=== PATIENT | female | born 1995 | race Caucasian/White ===

== ENCOUNTER → 2016-11-23 | Outpatient (CLI) | payer OTHER, BC ==
[2016-11-23 07:35] LABS: FASTING URINE GLUCOSE NEGATIVE
[2016-11-23 08:17] LABS: BUN 10 mg/dL (7-18)
[2016-11-23 08:18] LABS: GFR (ESTIMATED) 107 ML/MIN (59-)
[2016-11-23 09:02] LABS: 1 HR URINE GLUCOSE NEGATIVE mg/ml
[2016-11-23 10:14] LABS: 2 HR URINE GLUCOSE NEGATIVE mg/ml
[2016-11-23 10:40] LABS: 3 HR URINE GLUCOSE NEGATIVE mg/ml
== END ==
LOC: LAB 07:01
PROVIDERS: Internal Medicine
DX: R53.81 Other malaise (principal); E16.2 Hypoglycemia, unspecified; R61 Generalized hyperhidrosis

== ENCOUNTER → 2017-03-16 | Outpatient (CLI) | payer OTHER ==
[2017-03-17 12:37] LABS: HBsAg Screen Negative (Negative); HIV Screen 4th Generation wRfx Non Reactive (Non Reactive); Hep A Ab, IgM Negative (Negative); Hep B Core Ab, IgM Negative (Negative); Hep C Virus Ab 0.1 (0.0-0.9)
== END ==
LOC: LAB 10:37
DX: S61.431D Puncture wound without foreign body of right hand, subsequent encounter (principal); W26.8XXA Contact with other sharp object(s), not elsewhere classified, initial encounter; Y92.69 Other specified industrial and construction area as the place of occurrence of the external cause; Y99.0 Civilian activity done for income or pay; Z09 Encounter for follow-up examination after completed treatment for conditions other than malignant neoplasm
CPT/HCPCS: G0432

== ENCOUNTER 2017-06-21 12:09 | Observation (INO) | payer OTHER, BC ==
[~2017-06-21] VITALS: Ht 170.2 cm; Wt 89.5 kg
[2017-06-21 12:15] VITALS: BP 131/90
--- NOTE | 2017-06-21 12:20 | Emergency Room Report ---
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 N Clinical Suspician of Infection? N Mental Status: 1 - Regular (Normal Baseline) Sepsis Risk:Low Sepsis Risk Have you (or family members/close friends) recently traveled outside the [place]? N If Yes, where/when: Have you had exposure to infectious disease within the past month? TB? Other? Specify: Source patient, RN notes reviewed Exam Limitations no limitations Comment Pt comes to the ED with complaints of abdominal discomfort and diarrhea since Wednesday afternoon. aND HAVING about 5 BM's per day. Most of the pain is right sided and more in the RUQ Cardiac Chest Pain Chest pain indicative of cardiac No ALLERGIES Coded Allergies: No Known Allergies (06/21/17) Home Medications Reported Medications No Known Home Medications History Medical History General CAD? No Angina: No [place]: No Hypertension? No Hyperlipidemia? No CHF? No DVT? No PE? No COPD? No Asthma? No Anemia? No GERD? No Gastric ulcers? No GI Bleed? No Hernia? No Thyroid Problems? No Hypothyroidism? No CVA? No Seizures? No Diabetes? No Renal Insuffiency? No End Stage Renal Disease? No UTI? No Stones? No BPH? No GB Disease: No Nephritic Syndrome? No Asplenia? No Hepatitis? No Sickle Cell Disease? No Arthritis? No Migraines? No Cataracts? No Glaucoma? No MRSA? No HIV? No TB? No Anxiety? No Depression? No Cancer? No More? No Immunization Hx Ped.Immunizations UTD Yes DT/Tetanus 1-4 Years Ago Surgical Hx Previous Surgery?Y wisdom teeth [employer] Hx LMP 1 Month Ago Social History Smoking Hx Smoker: Never Smoker Tobacco: No Alcohol Alcohol: No Review of Systems All Other Systems Reviewed and Negative Constitutional see HPI Gastrointestinal see HPI Physical Exam Vital Signs Vital Signs Date Time Temp Pulse Resp B/P Pulse O2 O2 Flow FiO2 Ox Delivery Rate 06/21 1514 97.0 90 18 132/90 99 06/21 1215 97.0 116 18 131/90 99 General Appearance normal appearance, WD/WN, no apparent distress Respiratory Status No: respiratory distress. 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 No Results/Orders Laboratory Tests 06/21/17 1230: Sodium 137, Potassium 3.6, Chloride 104, Carbon Dioxide 27, BUN 6 L, Creatinine 0.8, Estimated Creat Clear 157, Estimated GFR (MDRD) 91, Glucose 90, Calcium 8.6 , Total Bilirubin 0.3, AST 14 L, ALT 16, Alkaline Phosphatase 103, Total Protein 7.5, Albumin 3.4, Globulin 4.1 H, Albumin/Globulin Ratio 0.8 L, Amylase 40, Lipase 86, WBC 13.8 H, RBC 5.18, Hgb 14.6, Hct 42.6, MCV 82.1 L, RDW 14.3, Plt Count 249, MPV 7.7, Gran % 81.9 H, Gran # 11.3 H, Lymphocytes % 13.1, Monocytes % 4.4, Eosinophils % 0.4, Basophils % 0.2, Lymphocytes # 1.8, Monocytes # 0.6, Eosinophils # 0.1, Basophils # 0.0, PUBS MCHC 34.2, MCH 28.1 06/21/17 1223: Urine Color YELLOW, Urine Appearance CLEAR, Urine pH 7.0, Ur Specific [place] <= 1.005, Urine Protein NEGATIVE, Urine Ketones NEGATIVE, Urine Blood 1+ H, Urine Nitrate NEGATIVE, Urine Bilirubin NEGATIVE, Urine Urobilinogen 0.2, Ur Leukocyte Esterase 1+ H, Urine RBC 3-5, Urine WBC 5-10, Ur Squamous Epith Cells 3-5, Urine Bacteria 1+, Urine Glucose NEGATIVE Current Medication Orders Sig/Randee Start time Last Medication Dose Route Stop Time Status Admin Sodium Chloride 50 ML .STK-MED ONE 06/21 1345 DC IV Piperacillin Sod/ 0 .STK-MED ONE 06/21 134 DC Tazobactam Sod .ROUTE Sodium Chloride 50 ML .STK-MED ONE 06/21 1343 DC IV Sodium Chloride 1,000 ML .STK-MED ONE 06/21 1343 DC IV Piperacillin Sod/ 3.375 GM ONCE ONE 06/21 1330 DC 06/21 Tazobactam Sod IV 06/21 1359 1349 Sodium Chloride 50 ML Sodium Chloride 1,000 ML .Q6H40M 06/21 1330 AC 06/21 IV 06/22 0121 1349 Sodium Chloride 10 ML PRN PRN 06/21 1330 AC IV 06/22 1321 Sodium Chloride 10 ML PRN PRN 06/21 1230 AC IV 06/22 1217 Orders Procedure Date/time Status DIET-NOTHING BY MOUTH 06/21 D Active Decision to admit 06/21 1512 Active CULTURE, URINE 06/21 1223 Active INFLUENZA A&B ANTIGENS 06/21 1221 Active DIARRHEA PANEL, PCR 06/21 1220 Active IV SALINE LOCK 06/21 1217 Active URINALYSIS/COMPLETE 06/21 1217 Complete URINE 06/21 1217 Complete LIPASE 06/21 1217 Complete CBC WITH AUTO DIFF 06/21 1217 Complete CHEM 12 PROFILE 06/21 1217 Complete AMYLASE 06/21 1217 Complete XRAY/CT/US XRAY/CT/US Ultrasound gallbladder US Interpretation by discussed w/radiologist US results lots of sludge in the Gallbladder but no pericholecystic fluid Departure Departure Time of Disposition 1329 Disposition Still a Patient Clinical Impression Primary Impression: Acute cholecystitis Secondary Impressions: Cystitis without hematuria Condition STABLE Referrals YELENA KAMINSKI (Family) Additional Instructions Pt does not want to be transferred to [facility] as she works in [place] and insurance is here. Discussed with Dr. Dawson. Admit to OBS for IV antibiotics, schedule HIDA Scan and place a surgical consult Discharge Counseling Counseled pt/family regarding diagnosis, test results, follow up needs Prescriptions Current Visit Scripts No Known Home Medications ED Critical Care Critical Care No If Critical Care minutes are documented, the time involved in the performance of seperately reportable procedures was not counted toward critical care time documented. I directly delivered medical care to this critically ill and/or injured patient. Timely evaluation and treatment was necessary to address the significant organ system(s) dysfunction present in this patient. at 1515
[2017-06-21 12:36] LABS: URINE BILIRUBIN - DIPSTICK NEGATIVE (NEG); URINE BLOOD 1+ (NEG)
[2017-06-21 12:43] LABS: LYMPH # 1.8 K/mm3 (0.7-4.5); LYMPH % 13.1 % (10-50.0)
[2017-06-21 12:51] LABS: HEMOGLOBIN 14.6 g/dL (12.2-16.2)
--- NOTE | 2017-06-21 13:44 | RADIOLOGY REPORT PS360 ---
US GALLBLADDER (ABD LTD) HISTORY: RUQ abd pain ] quadrant pain for 3 days. Diarrhea and nausea. Patient Age: 21 years: Female Ordering Physician: Monik Bangura MD TECHNIQUE: Ultrasound right upper quadrant COMPARISON :No relevant previous studies FINDINGS Pancreas appears satisfactory. Liver. No focal lesion. No biliary ductal dilatation Gallbladder. No discrete gallstones evident. Notable amount of debris and sludge seen leading to the gallbladder on the decubitus images. But No discrete or shadowing gallstone . Moderate-generous size gallbladder measuring 8.3 cm length. Gallbladder wall upper normal thickness. Common duct normal diameter 4 mm. Marta hepatis region Portal vein normal dimension and normal direction flow. Right kidney appears normal. No hydronephrosis or mass. 9.8 cm length. Cortex well-maintained. IMPRESSION: Gallbladder.No gallstones. There is notable debris and moderate sludge in gallbladder but no discrete gallstones.. Gallbladder wall upper normal thickness overall Liver, pancreas right kidney unremarkable
[2017-06-21 15:41] LABS: AEROMONAS NOT DETECTED (NOT DETECTE); ASTROVIRUS NOT DETECTED (NOT DETECTE); CYCLOSPORA CAYETANENSIS NOT DETECTED (NOT DETECTE); E COLI O157 NOT DETECTED (NOT DETECTE); ENTEROAGGREGATIVE E COLI NOT DETECTED (NOT DETECTE); ENTEROPATHOGENIC E COLI NOT DETECTED (NOT DETECTE); ENTEROTOXIGENIC E COLI NOT DETECTED (NOT DETECTE); NOROVIRUS NOT DETECTED (NOT DETECTE); SAPOVIRUS NOT DETECTED (NOT DETECTE); SHIGELLA/ENTEROINVASIVE E COLI NOT DETECTED (NOT DETECTE); VIBRIO CHOLERAE NOT DETECTED (NOT DETECTE)
[2017-06-21 17:31] VITALS: BP 151/89
[2017-06-21 17:36] LABS: SHIGA-LIKE TOXIN PROD. E COLI DETECTED (NOT DETECTE)
[2017-06-21 19:28] VITALS: BP 128/82
[2017-06-21 20:15] VITALS: BP 128/82
--- NOTE | 2017-06-21 22:34 | HISTORY AND PHYSICAL REPORT ---
Demographics: Admit date: 06/21/17 Chief complaint: abd pain PRIMARY DIAGNOSIS: ACUTE CHOLECYSTITIS Allergies: Coded Allergies: No Known Allergies (06/21/17) History of present illness: History of present illness: this wf with abd pain with vomiting and diarrhea w/o blood in stool - pt with no fever or known contact- pt with no travel and no uncooked seafood - pt with no relief with otc meds and was seen in the ed with continued sx despite meds and ivf - Past medical history: Family HX Family Hx Insignificant Yes Immunization HX Ped.Immunizations UTD Yes DT/Tetanus Unknown Pneumonia NA TB Test in last year Yes Result Negative General CAD? No Angina: No [place]: No Hypertension? No Hyperlipidemia? No CHF? No DVT? No PE? No COPD? No Asthma? No Anemia? No GERD? No Gastric ulcers? No GI Bleed? No Hernia? No Thyroid Problems? No Hypothyroidism? No CVA? No Seizures? No Diabetes? No Renal Insuffiency? No UTI? No Stones? No BPH? No GB Disease: No Nephritic Syndrome? No Asplenia? No Hepatitis? No Sickle Cell Disease? No Arthritis? No Migraines? No Cataracts? No Glaucoma? No MRSA? No HIV? No TB? No Anxiety? No Depression? No Cancer? No More? No Past Surgical HX Previous Surgery?Y wisdom teeth Current home meds: Reported Medications No Known Home Medications Social Hx: Smoking HX Tobacco No Are you/the child exposed to second-hand smoke: No Alcohol Alcohol: No Hx of Drug Use Drug Use? No Patien't marital status is single Patient's support system is excellent Review of systems: Constitutional see HPI, weakness. No: fever. Eyes No: drainage. Ears, Nose, Mouth, Throat No ear discharge, No epistaxis, No throat pain Respiratory No: cough, shortness of breath, wheezing. Cardiovascular No chest pain, No palpitations, No syncope Gastrointestinal/Abdominal see HPI, abdominal pain, diarrhea, nausea, poor appetite, poor fluid intake, vomiting Genitourinary No: dysuria, frequency, hesitancy, hematuria. Musculoskeletal No: back pain, joint pain, joint swelling, neck pain. Skin No: rash. Neurological No: headache, seizure disorder. Psychiatric No: no symptoms reported. Exam: Lab data for last 24 hours: Laboratory Tests 06/21/17 1904: Influenza Type A Ag NOT DETECTED, Influenza Type B Ag NOT DETECTED 06/21/17 1535: Stl Cyclospora species NOT DETECTED, Stool Rotavirus (PCR) NOT DETECTED, Stool Campylobacter PCR NOT DETECTED, Stool Giardia Lamblia PCR NOT DETECTED, Stl Norovirus GI/GII PCR NOT DETECTED, Adenovirus (PCR) NOT DETECTED, C. difficile Tox (PCR) NOT DETECTED, E. coli (PCR) NOT DETECTED, Yersinia (PCR) NOT DETECTED 06/21/17 1230: Sodium 137, Potassium 3.6, Chloride 104, Carbon Dioxide 27, BUN 6 L, Creatinine 0.8, Estimated Creat Clear 157, Estimated GFR (MDRD) 91, Glucose 90, Calcium 8.6 , Total Bilirubin 0.3, AST 14 L, ALT 16, Alkaline Phosphatase 103, Total Protein 7.5, Albumin 3.4, Globulin 4.1 H, Albumin/Globulin Ratio 0.8 L, Amylase 40, Lipase 86, WBC 13.8 H, RBC 5.18, Hgb 14.6, Hct 42.6, MCV 82.1 L, RDW 14.3, Plt Count 249, MPV 7.7, Gran % 81.9 H, Gran # 11.3 H, Lymphocytes % 13.1, Monocytes % 4.4, Eosinophils % 0.4, Basophils % 0.2, Lymphocytes # 1.8, Monocytes # 0.6, Eosinophils # 0.1, Basophils # 0.0, PUBS MCHC 34.2, MCH 28.1 06/21/17 1223: Urine Color YELLOW, Urine Appearance CLEAR, Urine pH 7.0, Ur Specific [place] <= 1.005, Urine Protein NEGATIVE, Urine Ketones NEGATIVE, Urine Blood 1+ H, Urine Nitrate NEGATIVE, Urine Bilirubin NEGATIVE, Urine Urobilinogen 0.2, Ur Leukocyte Esterase 1+ H, Urine RBC 3-5, Urine WBC 5-10, Ur Squamous Epith Cells 3-5, Urine Bacteria 1+, Urine Glucose NEGATIVE Microbiology 06/21 1223 URINE CC: Urine Culture - RECD Admission vital signs: 1ST Vital Signs Result Date Time Pulse Ox 99 06/21 1215 B/P 131/90 06/21 1215 Temp 97.0 06/21 1215 Pulse 116 06/21 1215 Resp 18 06/21 1215 O2 Delivery ROOM AIR 06/21 1731 Exam General appearance: alert, awake Eyes: anicteric, PERRLA ENT: dry mucous membranes Neck: no JVD Cardiovascular: regular rate & rhythm, no murmur Respiratory: no respiratory distress ABD: soft, no guarding, no organomegaly, tenderness Genitourinary: no hematuria Extremities: moves all Musculoskeletal: equal muscle strength Skin: dry 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 Abdominal pain 2. Shigella dysentery Plan: will do ivf and surg consult for abd pain at [id number]
[2017-06-22 03:47] VITALS: BP 109/62
[2017-06-22 06:50] LABS: LYMPH # 2.2 K/mm3 (0.7-4.5); LYMPH % 17.2 % (10-50.0)
[2017-06-22 06:57] LABS: HEMOGLOBIN 12.3 g/dL (12.2-16.2)
--- NOTE | 2017-06-22 07:20 | PHARMACY CLINIC NOTE ---
Patient Demographics Patient Demographics Admission date: 06/21/17 Date: 06/22/17 Time: 07 Allergies Coded Allergies: No Known Allergies (06/21/17) HEIGHT- FT: 5 IN: 7.00 K.500 VTE General Information Labs: Laboratory Tests 06/22 06/21 0632 1230 Hematology Hgb (12.2 - 16.2 g/dL) 12.3 14.6 Hct (37.0 - 47.0 %) 36.3 L 42.6 Plt Count (142 - 424 K/mm3) 219 249 Disclaimer The following section includes nursing documentation that has been pulled in for pharmacy review. Patient's VTE score: 0 Patient's VTE Risk: VERY LOW RISK Clinical trial participant? No VTE prophylaxis NQF [id number] VTE prophylaxis ordered? Yes Type of prophylaxis/treatment: ANNE at 0720
[2017-06-22 08:25] VITALS: BP 106/71
--- NOTE | 2017-06-22 08:26 | ACUTE CARE PROGRESS NOTE (QUA) ---
Progress Notes Subjective Date 06/22/17 Time 0823 Patient/family reports: feeling better, pain Nursing reports: alert, no complaints Objective Findings Laboratory Tests 06/22/17 0632: Sodium 141, Potassium 3.3 L, Chloride 107, Carbon Dioxide 27, BUN 3 L, Creatinine 0.6, Estimated Creat Clear 209 H, Estimated GFR (MDRD) 126, Glucose 89, Calcium 7.9 L, WBC 12.5 H, RBC 4.32, Hgb 12.3, Hct 36.3 L, MCV 84.1, RDW 14.4, Plt Count 219, MPV 8.0, Gran % 76.3, Gran # 9.5 H, Lymphocytes % 17.2, Monocytes % 5.7, Eosinophils % 0.6, Basophils % 0.3, Lymphocytes # 2.2, Monocytes # 0.7, Eosinophils # 0.1, Basophils # 0.0, PUBS MCHC 33.5, MCH 28.1 06/21/17 1904: Influenza Type A Ag NOT DETECTED, Influenza Type B Ag NOT DETECTED 06/21/17 1535: Stl Cyclospora species NOT DETECTED, Stool Rotavirus (PCR) NOT DETECTED, Stool Campylobacter PCR NOT DETECTED, Stool Giardia Lamblia PCR NOT DETECTED, Stl Norovirus GI/GII PCR NOT DETECTED, Adenovirus (PCR) NOT DETECTED, C. difficile Tox (PCR) NOT DETECTED, E. coli (PCR) NOT DETECTED, Yersinia (PCR) NOT DETECTED 06/21/17 1230: Sodium 137, Potassium 3.6, Chloride 104, Carbon Dioxide 27, BUN 6 L, Creatinine 0.8, Estimated Creat Clear 157, Estimated GFR (MDRD) 91, Glucose 90, Calcium 8.6 , Total Bilirubin 0.3, AST 14 L, ALT 16, Alkaline Phosphatase 103, Total Protein 7.5, Albumin 3.4, Globulin 4.1 H, Albumin/Globulin Ratio 0.8 L, Amylase 40, Lipase 86, WBC 13.8 H, RBC 5.18, Hgb 14.6, Hct 42.6, MCV 82.1 L, RDW 14.3, Plt Count 249, MPV 7.7, Gran % 81.9 H, Gran # 11.3 H, Lymphocytes % 13.1, Monocytes % 4.4, Eosinophils % 0.4, Basophils % 0.2, Lymphocytes # 1.8, Monocytes # 0.6, Eosinophils # 0.1, Basophils # 0.0, PUBS MCHC 34.2, MCH 28.1 06/21/17 1223: Urine Color YELLOW, Urine Appearance CLEAR, Urine pH 7.0, Ur Specific [place] <= 1.005, Urine Protein NEGATIVE, Urine Ketones NEGATIVE, Urine Blood 1+ H, Urine Nitrate NEGATIVE, Urine Bilirubin NEGATIVE, Urine Urobilinogen 0.2, Ur Leukocyte Esterase 1+ H, Urine RBC 3-5, Urine WBC 5-10, Ur Squamous Epith Cells 3-5, Urine Bacteria 1+, Urine Glucose NEGATIVE Microbiology 06/21 1223 URINE CC: Urine Culture - RECD Vital Signs Date Time Temp Pulse Resp B/P Pulse O2 O2 Flow FiO2 Ox Delivery Rate 06/22 0347 98.9 78 20 109/62 97 ROOM AIR 06/21 2048 20 06/21 2015 99.4 70 20 128/82 100 06/21 1928 99.4 70 20 128/82 100 ROOM AIR 06/21 1731 83 06/21 1731 98.9 83 20 151/89 06/21 1731 99 ROOM AIR 06/21 1731 98.9 83 20 151/89 99 ROOM AIR 06/21 1651 88 18 131/76 99 06/21 1514 97.0 90 18 132/90 99 06/21 1215 97.0 116 18 131/90 99 Current Medications Sodium Chloride 1,000 ML .STK-MED ONE IV (DC) Sodium Chloride 1,000 ML .STK-MED ONE IV (DC) Morphine Sulfate 4 MG Q4HP PRN IV Promethazine HCl 12.5 MG Q6HP PRN IV Sodium Chloride 25 ML PRN PRN IV Promethazine HCl 0 .STK-MED ONE .ROUTE (DC) Sodium Chloride 1,000 ML .STK-MED ONE IV (DC) Ampicillin/Sulbactam/Sodium Chlorid 3 GM Q6 IV (DC) Sodium Chloride 100 ML Sodium Chloride 10 ML PRN PRN IV Nicotine 21 MG DAILYP PRN TD Ondansetron HCl 4 MG Q6HP PRN IV Promethazine HCl 25 MG Q4HP PRN IV Sodium Chloride 1,000 ML .Q5H IV Sodium Chloride 25 ML PRN PRN IV Sodium Chloride 50 ML .STK-MED ONE IV (DC) Piperacillin Sod/Tazobactam Sod 0 .STK-MED ONE .ROUTE (DC) Sodium Chloride 50 ML .STK-MED ONE IV (DC) Sodium Chloride 1,000 ML .STK-MED ONE IV (DC) Piperacillin Sod/Tazobactam Sod 3.375 GM ONCE ONE IV (DC) Sodium Chloride 50 ML Sodium Chloride 1,000 ML .Q6H40M IV (DC) Sodium Chloride 10 ML PRN PRN IV Sodium Chloride 10 ML PRN PRN IV Last VS-Temp:98.9 B/P:109/62 Pulse:78 Resp:20 SaO2:97 ROOM AIR Last weight lbs:197 oz:5 K.500 Method:Bed Scales Exam General appearance: normal appearance, awake Eyes: normal exam, PERRLA ENT: normal exam Neck: normal inspection, full range of motion Cardiovascular: normal exam, regular rate & rhythm Respiratory: normal exam, chest non-tender, good air movement, normal breath sounds, no respiratory distress ABD: tenderness, pos villegas sign Genitourinary: normal voiding & quantity Extremities: normal exam, moves all Musculoskeletal: normal exam Skin: normal exam, warm Neuro: normal exam, alert, intact, no deficit, oriented, speech clear Reviewed: allergies, medications, vital signs, lab results Assessment/Plan Problem List 1. Abdominal pain 2. Shigella dysentery Patient condition Stable Plan: order additional tests This inpt stay is expected to cross 2 MNs from start of care No Comments: yvonne with chris at 0864
--- NOTE | 2017-06-22 08:52 | CONSULT NOTE ---
Standard Demographics Patient Demo Date of Consultation: 06/22/17 Referring Provider: Toni Dawson MD Reason for Consultation: "gallbladder disease" PRIMARY DIAGNOSIS: ACUTE CHOLECYSTITIS Allergies: Coded Allergies: No Known Allergies (06/21/17) History of Present Illness Chief Complaint: Diarrhea and cramping pain History of Present Illness: 21-year-old white female, healthy. Presented to the emergency department yesterday afternoon with a three-day history of cramping abdominal pain and diarrhea. Pain is localized mostly in the epigastrium and RIGHT lower quadrant. She states that when she eats she has relatively immediate postprandial diarrhea. Denies known blood in stool. No other sick contacts. No travel. Evaluation in the emergency department revealed a mild leukocytosis. She had an ultrasound performed of her gallbladder which revealed no sonographic evidence of cholecystitis. She was admitted for inpatient management and surgical consultation for cholecystitis. She had a diarrhea PCR panel which was positive for Shigella. Past Medical History Denies: asthma, GERD. Surgical History Previous Surgery?Y wisdom teeth Allergies Coded Allergies: No Known Allergies (06/21/17) Medications: Reported Medications No Known Home Medications Smoking Hx Tobacco: No Smoker: Never Smoker Type: N/A Packs/day: N/A Are you/the child exposed to second-hand smoke: No Alcohol Alcohol: No Hx of Drug Use Drug Use? No Review of Systems Constitutional Positive for: fatigue. Skin No: bruising. Immune/allergy No: anaphalaxis. Eyes No: vision loss. ENT No: hearing loss. Respiratory No: shortness of air. Cardiovascular No: chest pain. GI Positive for: abdomen, diarrhea. (female) No: hematuria. Musculoskeletal No: extremity swelling. Heme No: bruising. Endocrine No: cold intolerance. Neurological No: change in LOC. Physical Exam VS/I&O Vital Signs Date Time Temp Pulse Resp B/P Pulse O2 O2 Flow FiO2 Ox Delivery Rate 06/22 08 98.5 75 18 106/71 95 ROOM AIR 06/22 347 98.9 78 20 109/62 97 ROOM AIR 06/218 20 06/21 2015 99.4 70 20 128/82 100 06/21 1928 99.4 70 20 128/82 100 ROOM AIR 06/21 1731 83 06/21 1731 98.9 83 20 151/89 06/21 1731 99 ROOM AIR 08/21 1731 98.9 83 20 151/89 99 ROOM AIR 06/21 1651 88 18 131/76 99 06/21 1514 97.0 90 18 132/90 99 06/21 1215 97.0 116 18 131/90 99 I&O 06/22 0700 Intake Total 4404 Output Total Balance 4404 Intake, IV 3924 Intake, Oral 480 Patient 197 lb Weight Exam General appearance no acute distress Respiratory clear to auscultation Cardiovascular normal heart sounds Abdomen no rebound, soft Findings/Data Her abdomen is soft. She has some tenderness in the RIGHT lower quadrant. No guarding or rebound. Plan Plan: Patient's clinical scenario and workup is positive for Shigella. No evidence of acute cholecystitis at this time. Pursue gallbladder. Treat Shigella. Would cancel HIDA scan as it could be prone to erroneous outcome done as an inpatient in patient with gastrointestinal illness. Will start diet. Possible she has some degree of gallbladder disease but this does not appear to be the acute problem. May consider CT scan to evaluate extent of potential enterocolitis. at 0813
[2017-06-22] MEDS ORDERED: NOMEDS XX ×2 (10:39→10:41)
[2017-06-22 14:19] VITALS: BP 106/71
[2017-06-22] MEDS ORDERED: ALIGN10.5 MG PO (16:22)
--- NOTE | 2017-06-22 16:25 | DISCHARGE SUMMARY STANDARD ---
Demographics Admit date: 06/21/17 Discharge date: 06/22/17 History of present illness History of present illness this wf with abd pain with vomiting and diarrhea w/o blood in stool - pt with no fever or known contact- pt with no travel and no uncooked seafood - pt with no relief with otc meds and was seen in the ed with continued sx despite meds and ivf - Hospital Course Hospital Course: diarreha panel- shilg positive. surgery consult see note, has tolerated lunch and snacks well and diarrhea has decreased, will dc home and increase fluids. Discharge diagnoses Problem List 1. Abdominal pain 2. Shigella dysentery Medications Medications: Discharge meds are as noted. Follow up Follow up in office in: 7 DAYS with: Chris CAMPOS,Terrance Hicks Comment: rounded with chris at [phone]
[2017-06-22 16:26] VITALS: BP 116/64
[2017-06-22 16:39] VITALS: BP 116/64
--- OUTSIDE RECORDS SUMMARY | 2017-08-04 06:31 | External Medical Summary Rpt ---
Author Author , ROLANDO MARSHALL Address Unknown Phone [email or web address] Purpose Continuity of Care Document - 03-16-2017 through 2016 Problems Code Diagnosis DOS Provider Status K81.0 ACUTE CHOLECYSTIT IS N30.90 CYSTITIS, UNSPECIFIED WITHOUT HEMATURIA W27.3XXA CONTACT WITH NEEDLE (SEWING), INITIAL ENCOUNTER Results Labs Lab Lab Date Result Refere Interp Status Commen Order Detail nces retati t Range on Influenza virus A+B Ag [Presence] in Unspecified specimen (06-21-2017 19:04) Influen NOT NOT complet za 017 DETECTE DETECTD ed virus A 19:04 D Ag [Presen ce] in Unspeci fied specime n Influen NOT NOT complet za 017 DETECTE DETECTD ed virus B 19:04 D Ag [Presen ce] in Unspeci fied specime n Hepatitis B virus susceptibility panel in Isolate by Genotype method (03-16-2017 10:39) Hepatit Negativ Negativ complet is A 017 e e ed virus 10:39 IgM Ab [Presen ce] in Serum by Immunoa ssay Hepatit Negativ Negativ complet is B 017 e e ed virus 10:39 core IgM Ab [Presen ce] in Serum by Immunoa ssay Hepatit Negativ Negativ complet is B 017 e e ed virus 10:39 surface Ag [Presen ce] in Serum by Immunoa ssay
--- OUTSIDE RECORDS SUMMARY | 2017-08-04 06:31 | External Medical Summary Rpt ---
Author Author , ROLANDO MARSHALL Address Unknown Phone [email or web address] Immunization Name Date Rout CVX Reac Dose Comm Prov Is Faci e tion ent ider Refu lity Give sed n MMR 02-2 3 999 Hist H191 No H191 2-20 oric 00 al Info rmat ion - Sour ce Unsp ecif ied Jamil 02-2 10 999 Hist H191 No H191 o-IP 2-20 oric V 00 al Info rmat ion - Sour ce Unsp ecif ied DTaP 02-2 107 999 Hist H191 No H191 , UF 2-20 oric 00 al Info rmat ion - Sour ce Unsp ecif ied DTaP 07-0 107 999 Hist H191 No H191 , UF 8-19 oric 98 al Info rmat ion - Sour ce Unsp ecif ied
--- OUTSIDE RECORDS SUMMARY | 2017-08-04 06:31 | External Medical Summary Rpt ---
Author Author , ROLANDO MARSHALL Address Unknown Phone [email or web address] Immunization Name Date Rout CVX Reac Dose [...]
--- OUTSIDE RECORDS SUMMARY | 2017-08-04 06:31 | External Medical Summary Rpt ---
Author Author ROLANDO Address Unknown Phone Purpose Continuity of Care Document - through 2016
--- OUTSIDE RECORDS SUMMARY | 2017-08-04 06:31 | External Medical Summary Rpt ---
Author Author , ROLANDO MARSHALL Address Unknown Phone [email or web address] Purpose Continuity of Care Document - 03-16-2017 [...]
--- OUTSIDE RECORDS SUMMARY | 2017-08-04 06:32 | External Medical Summary Rpt ---
Author Author ROLANDO Barfield, HEAVENTOYA [employer] Organization [employer] Address Unknown Phone Unavailable Results Basic metabolic panel in Blood Observa Value Referen Units Interpr Notes Date tion ce etation Range Urea 7 - 18 mg/dL Low No Jun 22 nitrogen informati 2017 6:32 [Mass/vol on in AM ume] in source Serum or data Plasma Calcium 8.5 - mg/dL Low No Jun 22 [Mass/vol 10.1 informati 2017 6:32 ume] in on in AM Serum or source Plasma data Chloride 98 - 107 mmoL/L Normal No Jun 22 [Moles/vo informati 2017 6:32 lume] in on in AM Serum or source Plasma data Carbon 21.0 - mmoL/L Normal No Jun 22 dioxide, 32.0 informati 2017 6:32 total on in AM [Moles/vo source lume] in data Serum or Plasma Creatinin 0.55 - mg/dL No No Jun 22 e 1.02 informati informati 2017 6:32 [Mass/vol on in on in AM ume] in source source Serum or data data Plasma Creatinin 50 - 200 ML/MIN High No Jun 22 e renal informati 2017 6:32 clearance on in AM source predicted data by Cockcroft -Gault formula Estimated 59- ML/MIN No REFERENCE Jun 22 informati RANGE: 2017 6:32 glomerula on in >60 AM r source ML/MIN/1. filtratio data 73 SQUARE n rate METERSIf (GF this patient is -A merican, then multiply theresult by 1.210. Glucose 74 - 106 mg/dL Normal No Jun 22 [Mass/vol informati 2016 6:32 ume] in on in AM Serum or source Plasma data Potassium 3.5 - 5.1 mmoL/L Low No Jun 22 informati 2017 6:32 [Moles/vo on in AM lume] in source Serum or data Plasma Sodium 136 - 145 mmoL/L Normal No Jun 22 [Moles/vo informati 2017 6:32 lume] in on in AM Serum or source Plasma data CBC W Auto Differential panel in Blood Observa Value Referen Units Interpr Notes Date tion ce etation Range Basophils 0 - 0.2 K/MM3 Normal No Jun 22 informati 2017 6:32 [#/volume on in AM ] in source Blood by data Automated count Basophils 0.1 - 2.0 % Normal No Jun 22 /100 informati 2017 6:32 leukocyte on in AM s in source Blood by data Automated count Eosinophi 0.0 - 0.4 K/mm3 Normal No Jun 22 ls informati 2017 6:32 [#/volume on in AM ] in source Blood by data Automated count Eosinophi 0.1 - % Normal No Jun 22 ls/100 12.0 informati 2017 6:32 leukocyte on in AM s in source Blood by data Automated count Granulocy 1.8 - 7.8 K/mm3 High No Jun 22 jonas informati 2017 6:32 [#/volume on in AM ] in source Blood by data Automated count Granulocy 37.0 - % Normal No Jun 22 jonas/100 80.0 informati 2016 6:32 leukocyte on in AM s in source Blood by data Automated count Hematocri 37.0 - % Low No Jun 22 t [Volume 47.0 informati 2017 6:32 on in AM Fraction] source of Blood data Hemoglobi 12.2 - g/dL No No Jun 22 n 16.2 informati informati 2017 6:32 [Mass/vol on in on in AM ume] in source source Blood data data Lymphocyt 0.7 - 4.5 K/mm3 Normal No Jun 22 es informati 2017 6:32 [#/volume on in AM ] in source Unspecifi data ed specimen by Automated count Lymphocyt 10 - 50.0 % Normal No Jun 22 es informati 2017 6:32 [#/volume on in AM ] in source Unspecifi data ed specimen by Automated count Erythrocy 27 - 31.2 pg Normal No Jun 22 te mean informati 2017 6:32 corpuscul on in AM ar source hemoglobi data n [Entitic mass] Erythrocy 31.8 - g/dl Normal No Jun 22 te mean 35.4 informati 2016 6:32 corpuscul on in AM ar source hemoglobi data n concentra tion [Mass/vol ume] by Automated count Erythrocy 82.2 - fl Normal No Jun 22 te mean 97.8 informati 2016 6:32 corpuscul on in AM ar volume source [Entitic data volume] by Automated count Monocytes 0.1 - 1.0 K/mm3 Normal No Jun 22 informati 2017 6:32 [#/volume on in AM ] in source Blood by data Automated count Monocytes 1.7 - 9.3 % Normal No Jun 22 /100 informati 2017 6:32 leukocyte on in AM s in source Blood by data Automated count Platelet 7.4 - fl Normal No Jun 22 mean 10.4 informati 2017 6:32 volume on in AM [Entitic source volume] data in Blood by Automated count Platelets 142 - 424 K/mm3 Normal No Jun 22 informati 2017 6:32 [#/volume on in AM ] in source Blood data Erythrocy 4.2 - 5.4 M/mm3 Normal No Jun 22 jonas informati 2017 6:32 [#/volume on in AM ] in source Amniotic data fluid Erythrocy 11.5 - % Normal No Jun 22 te 17.5 informati 2016 6:32 distribut on in AM ion width source [Entitic data volume] by Automated count Leukocyte 4.8 - K/MM3 High No Jun 22 s 10.8 informati 2016 6:32 [#/volume on in AM ] in source Blood data Influenza virus A+B Ag [Presence] in Unspecified specimen Observa Value Referen Units Interpr Notes Date tion ce etation Range Influen NOT NOT No No No Jun 21 za DETECTE DETECTD informa informa informa 2017 virus A D tion in tion in tion in 7:04 PM Ag source source source [Presen data data data ce] in Unspeci fied specime n Influen NOT NOT No No No Jun 21 za DETECTE DETECTD informa informa informa 2017 virus B D tion in tion in tion in 7:04 PM Ag source source source [Presen data data data ce] in Unspeci fied specime n DIARRHEA PANEL,PCR Observa Value Referen Units Interpr Notes Date tion ce etation Range Adenovi NOT NOT No No No Jun 21 maddi DETECTE DETECTE informa informa informa 2017 40+41 D tion in tion in tion in 3:35 PM Ag source source source [Presen data data data ce] in Stool Aeromon NOT NOT No No No Jun 21 as DETECTE DETECTE informa informa informa 2016 salmoni D tion in tion in tion in 3:35 PM max source source source [Presen data data data ce] in Unspeci fied specime n Astrovi NOT NOT No No No Jun 21 maddi DETECTE DETECTE informa informa informa 2017 [Presen D tion in tion in tion in 3:35 PM ce] in source source source Stool data data data by Electro n microsc opy Campylo NOT NOT No No No Jun 21 bacter DETECTE DETECTE informa informa informa 2017 sp Ab D tion in tion in tion in 3:35 PM [Presen source source source ce] in data data data Serum Clostri NOT NOT No No No Jun 21 dium DETECTE DETECTE informa informa informa 2017 diffici D tion in tion in tion in 3:35 PM le source source source toxin data data data A+B [Presen ce] in Stool Cryptos NOT NOT No No No Jun 21 poridiu DETECTE DETECTE informa informa informa 2016 m sp Ag D tion in tion in tion in 3:35 PM source source source [Presen data data data ce] in Unspeci fied specime n Cyclosp NOT NOT No No No Jun 21 ora DETECTE DETECTE informa informa informa 2016 cayetan D tion in tion in tion in 3:35 PM billy source source source [Presen data data data ce] in Unspeci fied specime n Escheri NOT NOT No No No Jun 21 patrick DETECTE DETECTE informa informa informa 2017 coli D tion in tion in tion in 3:35 PM [Presen source source source ce] in data data data Unspeci fied specime n by Culture FDA method Escheri NOT NOT No No No Jun 21 patrick DETECTE DETECTE informa informa informa 2017 coli D tion in tion in tion in 3:35 PM [Presen source source source ce] in data data data Unspeci fied specime n by Culture FDA method Escheri NOT NOT No No No Jun 21 patrick DETECTE DETECTE informa informa informa 2017 coli D tion in tion in tion in 3:35 PM Shiga-l source source source leah data data data toxin 1 assa Escheri NOT NOT No No No Jun 21 patrick DETECTE DETECTE informa informa informa 2017 coli D tion in tion in tion in 3:35 PM [id number] source source source data data data [Presen ce] in Stool by Organis m specifi c culture Entamoe NOT NOT No No No Jun 21 ba DETECTE DETECTE informa informa informa 2017 histoly D tion in tion in tion in 3:35 PM jose j source source source [Presen data data data ce] in Stool by Trichro me stain Giardia NOT NOT No No No Jun 21 DETECTE DETECTE informa informa informa 2017 lamblia D tion in tion in tion in 3:35 PM Ag source source source [Presen data data data ce] in Stool Norovir NOT NOT No No No Jun 21 us Ag DETECTE DETECTE informa informa informa 2016 [Presen D tion in tion in tion in 3:35 PM ce] in source source source Stool data data data Stool NOT NOT No No No Jun 21 Plesiom DETECTE DETECTE informa informa informa 2017 onas D tion in tion in tion in 3:35 PM shigell source source source oides data data data DNA detec Rotavir NOT NOT No No No Jun 21 us RNA DETECTE DETECTE informa informa informa 2017 detecti D tion in tion in tion in 3:35 PM on by source source source probe data data data and tar Salmone NOT NOT No No No Jun 21 lla sp DETECTE DETECTE informa informa informa 2016 DNA D tion in tion in tion in 3:35 PM [Identi source source source fier] data data data in Unspeci fied specime n by Probe & target amplifi cation method Caliciv NOT NOT No No No Jun 21 irus DETECTE DETECTE informa informa informa 2017 [Identi D tion in tion in tion in 3:35 PM fier] source source source in data data data Stool by Electro n microsc opy Escheri NOT NOT No No No Jun 21 patrick DETECTE DETECTE informa informa informa 2016 coli D tion in tion in tion in 3:35 PM [Presen source source source ce] in data data data Unspeci fied specime n by Culture FDA method Escheri DETECTE NOT No Abnorma No Jun 21 patrick D DETECTE informa l informa 2017 coli tion in tion in 3:35 PM SXT source source gene+H7 data data gene [Identi fier] in Unspeci fied specime n by Probe & target amplifi cation method Vibrio NOT NOT No No No Jun 21 cholera DETECTE DETECTE informa informa informa 2017 e DNA D tion in tion in tion in 3:35 PM [Presen source source source ce] in data data data Unspeci fied specime n by Probe & target amplifi cation method Vibrio NOT NOT No No No Jun 21 sp DNA DETECTE DETECTE informa informa informa 2017 [Identi D tion in tion in tion in 3:35 PM fier] source source source in data data data Unspeci fied specime n by Probe & target amplifi cation method Vibrio NOT NOT No No No Jun 21 sp DETECTE DETECTE informa informa informa 2017 identif D tion in tion in tion in 3:35 PM ied in source source source Stool data data data by Organis m specifi c culture Amylase [Enzymatic activity/volume] in Serum or Plasma Observa Value Referen Units Interpr Notes Date tion ce etation Range Amylase 25 - 115 U/L Normal No Jun 21 [Enzymati informati 2016 c on in 12:30 PM activity/ source volume] data in Serum or Plasma Comprehensive metabolic 2000 panel in Serum or Plasma Observa Value Referen Units Interpr Notes Date tion ce etation Range Albumin/G 1.1 - 1.8 No Low No Jun 21 lobulin informati informati 2016 [Mass on in on in 12:30 PM ratio] in source source Serum or data data Plasma Albumin 3.4 - 5.0 gm/dL Normal No Jun 21 [Mass/vol informati 2017 ume] in on in 12:30 PM Serum or source Plasma data Alkaline 46 - 116 U/L Normal No Jun 21 phosphata informati 2016 se on in 12:30 PM [Enzymati source c data activity/ volume] in Serum or Plasma Bilirubin 0.2 - 1.0 mg/dL Normal No Jun 21 .total informati 2017 [Mass/vol on in 12:30 PM ume] in source Serum or data Plasma Urea 7 - 18 mg/dL Low No Jun 21 nitrogen informati 2017 [Mass/vol on in 12:30 PM ume] in source Serum or data Plasma Calcium 8.5 - mg/dL Normal No Jun 21 [Mass/vol 10.1 informati 2016 ume] in on in 12:30 PM Serum or source Plasma data Chloride 98 - 107 mmoL/L Normal No Jun 21 [Moles/vo informati 2016 lume] in on in 12:30 PM Serum or source Plasma data Carbon 21.0 - mmoL/L Normal No Jun 21 dioxide, 32.0 informati 2016 total on in 12:30 PM [Moles/vo source lume] in data Serum or Plasma Creatinin 0.55 - mg/dL Normal No Jun 21 e 1.02 informati 2016 [Mass/vol on in 12:30 PM ume] in source Serum or data Plasma Creatinin 50 - 200 ML/MIN Normal No Jun 21 e renal informati 2017 clearance on in 12:30 PM source predicted data by Cockcroft -Gault formula Estimated 59- ML/MIN No REFERENCE Jun 21 informati RANGE: 2017 glomerula on in >60 12:30 PM r source ML/MIN/1. filtratio data 73 SQUARE n rate METERSIf (GF this patient is -A merican, then multiply theresult by 1.210. Globulin 1.3 - 3.2 gm/dL High No Jun 21 [Mass/vol informati 2017 ume] in on in 12:30 PM Serum source data Glucose 74 - 106 mg/dL Normal No Jun 21 [Mass/vol informati 2016 ume] in on in 12:30 PM Serum or source Plasma data Potassium 3.5 - 5.1 mmoL/L Normal No Jun 21 inform2016 [Moles/vo on in 12:30 PM lume] in source Serum or data Plasma Sodium 136 - 145 mmoL/L Normal No Jun 21 [Moles/vo informati 2017 lume] in on in 12:30 PM Serum or source Plasma data Aspartate 15 - 37 U/L Low No Jun 21 inform2016 aminotran on in 12:30 PM sferase source [Enzymati data c activity/ volume] in Serum or Plasma Alanine 12 - 78 U/L Normal No Jun 21 aminotran informati 2016 sferase on in 12:30 PM [Enzymati source c data activity/ volume] in Serum or Plasma Protein 6.4 - 8.2 gm/dL Normal No Jun 21 [Mass/vol 2016 ume] in on in 12:30 PM Serum or source Plasma data Lipase [Enzymatic activity/volume] in Serum or Plasma Observa Value Referen Units Interpr Notes Date tion ce etation Range Lipase 73 - 393 U/L Normal No Jun 21 [Enzymati 2016 c on in 12:30 PM activity/ source volume] data in Serum or Plasma CBC W Auto Differential panel in Blood Observa Value Referen Units Interpr Notes Date tion ce etation Range Basophils 0 - 0.2 K/MM3 Normal No Jun [id number] [#/volume on in 12:30 PM ] in source Blood by data Automated count Basophils 0.1 - 2.0 % Normal No Jun 21 /2016 leukocyte on in 12:30 PM s in source Blood by data Automated count Eosinophi 0.0 - 0.4 K/mm3 Normal No Jun 21 ls 2016 [#/volume on in 12:30 PM ] in source Blood by data Automated count Eosinophi 0.1 - % Normal No Jun 21 ls/100 12.0 2016 leukocyte on in 12:30 PM s in source Blood by data Automated count Granulocy 1.8 - 7.8 K/mm3 High No Jun 21 jonas 2016 [#/volume on in 12:30 PM ] in source Blood by data Automated count Granulocy 37.0 - % High No Jun 21 jonas/100 80.0 2016 leukocyte on in 12:30 PM s in source Blood by data Automated count Hematocri 37.0 - % Normal No Jun 21 t [Volume 47.0 2016 on in 12:30 PM Fraction] source of Blood data Hemoglobi 12.2 - g/dL No No Jun 21 n 16.2 informati 2016 [Mass/vol on in on in 12:30 PM ume] in source source Blood data data Lymphocyt 0.7 - 4.5 K/mm3 Normal No Jun 21 es 2016 [#/volume on in 12:30 PM ] in source Unspecifi data ed specimen by Automated count Lymphocyt 10 - 50.0 % Normal No Jun 21 es 2016 [#/volume on in 12:30 PM ] in source Unspecifi data ed specimen by Automated count Erythrocy 27 - 31.2 pg Normal No Aug 21 te mean 2016 corpuscul on in 12:30 PM ar source hemoglobi data n [Entitic mass] Erythrocy 31.8 - g/dl Normal No Jun 21 te mean 35.4 2016 corpuscul on in 12:30 PM ar source hemoglobi data n concentra tion [Mass/vol ume] by Automated count Erythrocy 82.2 - fl Low No Jun 21 te mean 97.8 2016 corpuscul on in 12:30 PM ar volume source [Entitic data volume] by Automated count Monocytes 0.1 - 1.0 K/mm3 Normal No Jun 21 inform2016 [#/volume on in 12:30 PM ] in source Blood by data Automated count Monocytes 1.7 - 9.3 % Normal No Jun 21 /100 2016 leukocyte on in 12:30 PM s in source Blood by data Automated count Platelet 7.4 - fl Normal No Jun 21 mean 10.4 2016 volume on in 12:30 PM [Entitic source volume] data in Blood by Automated count Platelets 142 - 424 K/mm3 Normal No Jun [id number] [#/volume on in 12:30 PM ] in source Blood data Erythrocy 4.2 - 5.4 M/mm3 Normal No Jun 21 jonas 2016 [#/volume on in 12:30 PM ] in source Amniotic data fluid Erythrocy 11.5 - % Normal No Jun 21 te 17.5 2016 distribut on in 12:30 PM ion width source [Entitic data volume] by Automated count Leukocyte 4.8 - K/MM3 High No Jun 21 s 10.8 2016 [#/volume on in 12:30 PM ] in source Blood data Choriogonadotropin.beta subunit [Units] in 24 hour Urine Observa Value Referen Units Interpr Notes Date tion ce etation Range Choriogon NEG No No No Jun 21 adotropin informati informati informati 2016 .beta on in on in on in 12:23 PM subunit source source source [Units] data data data in 24 hour Urine Hepatitis B virus susceptibility panel in Isolate by Genotype method Observa Value Referen Units Interpr Notes Date tion ce etation Range Hepatit Negativ Negativ No No No March 16 is A e e informa informa informa 2016 virus tion in tion in tion in 10:39 IgM Ab source source source AM [Presen data data data ce] in Serum by Immunoa ssay Hepatit Negativ Negativ No No No March 16 is B e e informa informa informa 2017 virus tion in tion in tion in 10:39 core source source source AM IgM Ab data data data [Presen ce] in Serum by Immunoa ssay Hepatitis 0.0 - 0.9 No No INFCE March 16 C virus informati informati Result 2017 Ab on in on in Units: 10:39 AM Signal/Cu source source s/co toff data data ratioNega [Ratio] tive: in Serum < or Plasma 0.8Indete by rminate: Immunoass 0.8 - ay 0.9Positi ve: > 0.9The CDC recommend s that a positive HCV antibody resultbe followed up with a HCV Nucleic Acid Amplifica tiontest (007985). Hepatit Negativ Negativ No No No March 16 is B e e informa informa informa 2017 virus tion in tion in tion in 10:39 surface source source source AM Ag data data data [Presen ce] in Serum by Immunoa ssay HIV Screen 4th Generation wRfx Observa Value Referen Units Interpr Notes Date tion ce etation Range
--- OUTSIDE RECORDS SUMMARY | 2017-08-04 06:32 | External Medical Summary Rpt ---
[...] with a HCV Nucleic Acid Amplifica tiontest (159272). Hepatit Negativ Negativ No No No March 16 is B e e informa informa informa 2017 virus tion in tion in tion in 10:39 surface source source source AM Ag data data data [Presen ce] in Serum by Immunoa ssay HIV Screen 4th Generation wRfx Observa Value Referen Units Interpr Notes Date tion ce etation Range
--- OUTSIDE RECORDS SUMMARY | 2017-08-04 08:32 | External Medical Summary Rpt ---
Author Author , ROLANDO MARSHALL Address Unknown Phone [email or web address] Purpose Continuity of Care Document - 03-16-2017 through 2016 Results Labs Lab Lab Date Result Refere [...]
--- OUTSIDE RECORDS SUMMARY | 2017-08-04 08:32 | External Medical Summary Rpt ---
Author Author , ROLANDO MARSHALL Address Unknown Phone [email or web address] Purpose Continuity of Care Document - 03-16-2017 [...]
--- OUTSIDE RECORDS SUMMARY | 2017-08-04 08:32 | External Medical Summary Rpt ---
Author Author ROLANDO Address Unknown Phone [email or web address] Purpose Continuity of Care Document - through 2016
--- OUTSIDE RECORDS SUMMARY | 2017-08-04 08:33 | External Medical Summary Rpt ---
[...] with a HCV Nucleic Acid Amplifica tiontest (626579). Hepatit Negativ Negativ No No No March 16 is B e e informa informa informa 2017 virus tion in tion in tion in 10:39 surface source source source AM Ag data data data [Presen ce] in Serum by Immunoa ssay HIV Screen 4th Generation wRfx Observa Value Referen Units Interpr Notes Date tion ce etation Range
--- OUTSIDE RECORDS SUMMARY | 2017-08-04 08:33 | External Medical Summary Rpt ---
Author Author , ROLANDO MARSHALL Address Unknown Phone [email or web address] Immunization Name Date Rout CVX Reac Dose Comm Prov Is Faci e tion ent ider Refu lity Give sed n Jamil 02-2 10 999 Hist H191 No H191 o-IP 2-20 oric V 00 al Info rmat ion - Sour ce Unsp ecif ied DTaP 02-2 107 999 Hist H191 No H191 , UF 2-20 oric 00 al Info rmat ion - Sour ce Unsp ecif ied MMR 02-2 3 999 Hist H191 No H191 2-20 oric 00 al Info rmat ion - Sour ce Unsp ecif ied DTaP 07-0 107 999 Hist H191 No H191 , UF 8-19 oric 98 al Info rmat ion - Sour ce Unsp ecif ied
--- OUTSIDE RECORDS SUMMARY | 2017-08-04 08:33 | External Medical Summary Rpt ---
[...] with a HCV Nucleic Acid Amplifica tiontest (109267). Hepatit Negativ Negativ No No No March 16 is B e e informa informa informa 2017 virus tion in tion in tion in 10:39 surface source source source AM Ag data data data [Presen ce] in Serum by Immunoa ssay HIV Screen 4th Generation wRfx Observa Value Referen Units Interpr Notes Date tion ce etation Range
--- OUTSIDE RECORDS SUMMARY | 2017-08-04 08:33 | External Medical Summary Rpt ---
Author Author , ROLANDO MARSHALL Address Unknown Phone [email or web address] Immunization Name Date Rout CVX Reac Dose [...]
== END 2017-06-22 16:40 | disposition home or self-care (01) ==
LOC: ER 12:09 → 2ND 15:45
PROVIDERS: General Practice
DX: A03.0 Shigellosis due to Shigella dysenteriae (principal)
CPT/HCPCS: G0378; J2543

== ENCOUNTER → 2017-09-06 | Outpatient (CLI) | payer OTHER, BC ==
[~2017-09-06] MED LIST: ALIGN10.5 MG PO; NOMEDS XX
[2017-09-06 15:50] LABS: LYMPH # 2.3 K/mm3 (0.7-4.5); LYMPH % 18.2 % (10-50.0)
[2017-09-06 16:10] LABS: HEMOGLOBIN 14.3 g/dL (12.2-16.2)
[2017-09-06 17:13] LABS: BUN 8 mg/dL (7-18)
[2017-09-06 17:14] LABS: GFR (ESTIMATED) 79 ML/MIN (59-)
== END ==
LOC: LAB 15:22
PROVIDERS: Surgery
DX: R10.11 Right upper quadrant pain (principal); Z01.812 Encounter for preprocedural laboratory examination

== ENCOUNTER → 2017-09-14 | Day surgery (SDC) | payer OTHER, BC ==
--- NOTE | 2017-09-14 12:15 | Operative Note ---
Endoscopy Report Date: 09/14/17 Preoperative diagnosis: RIGHT upper quadrant pain Procedure Type of procedure: Esophagogastroduodenoscopy with biopsies Indications: Patient is a 21-year-old white female originally referred for gallbladder. She lives in [place] and is primarily under the care of Dr. Mason Amado. 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 She had presented to the emergency department on June 21 with complaints of RIGHT lower quadrant pain, cramping, and diarrhea. She had a gallbladder ultrasound performed at that time which revealed no evidence of any gallstones but revealed some sludge and debris. She had a diarrhea PCR panel which revealed Shigella. She was treated for this as an outpatient. She has had ongoing symptoms now of postprandial nausea, gassiness, and bloating. She's had some occasional right- sided abdominal pain. She's had a rare vomiting. This usually occurs about 30 minutes postprandially. Diarrhea has resolved. She actually states that she is now having some constipation although the stools are not hard. I saw her back last week she had symptoms consistent with gallbladder disease. I had her undergo HIDA scan. This revealed an ejection fraction of 56 percent. She has had symptoms of RIGHT upper quadrant pain radiating into her back occurring postprandially. She had significant issue after she had eaten some lettuce and another time after she had eaten a hot dog. She underwent HIDA scan with fatty meal which revealed ejection fraction of 56 percent. Due to the equivocal nature of her gallbladder workup plan was made to proceed with upper endoscopy with biopsies prior to consideration for surgical removal of gallbladder. Consent was obtained and patient was taken to same-day surgery endoscopy procedure room. She was positioned in a lateral decubitus position. Adequate intravenous sedation was achieved with titration of 13 mg Versed and 200 g fentanyl for the duration of the procedure. Olympus endoscope was inserted via the oropharynx advanced through the esophagus. Esophagus appeared normal. Stomach was cannulated and insufflated. Retroflexion revealed no evidence of any significant hiatal hernia. There was some mild nonerosive diffuse gastritis. Gastric antral mucosal biopsy was obtained for CLOtest for H. pylori. Pylorus was widely patent. Endoscope was advanced into the duodenum and multiple biopsies were obtained. Gastric mucosal biopsy was obtained. Endoscope was Withdrawn. Findings 1. Gastritis Follow-Up Follow-Up: She had mild gastritis on endoscopic appearance. I will have her follow-up in the office in a couple weeks to assess the histopathology and H. pylori status. If all of this is relatively unremarkable on May counseled the patient regarding gallbladder as her symptoms have seemed quite classic for gallbladder disease although her HIDA scan revealed function within normal limits. at 1210
[2017-09-14 13:37] VITALS: BP 130/74
== END ==
LOC: SDC 10:57
PROVIDERS: Surgery
PROC: 0DB78ZX Excision of Stomach, Pylorus, Via Natural or Artificial Opening Endoscopic, Diagnostic (ICD-10-PCS; 2017-09-14)
PROC: 0DB98ZX Excision of Duodenum, Via Natural or Artificial Opening Endoscopic, Diagnostic (ICD-10-PCS; principal; 2017-09-14 11:30)
DX: K29.50 Unspecified chronic gastritis without bleeding (principal); Z79.3 Long term (current) use of hormonal contraceptives; I25.10 Atherosclerotic heart disease of native coronary artery without angina pectoris; Z82.49 Family history of ischemic heart disease and other diseases of the circulatory system; Z82.61 Family history of arthritis

== ENCOUNTER → 2017-09-22 | Outpatient (CLI) | payer OTHER, BC ==
[2017-09-22 14:42] LABS: BUN 5 mg/dL (7-18)
[2017-09-22 14:44] LABS: GFR (ESTIMATED) 106 ML/MIN (59-); HEMOGLOBIN 14.6 g/dL (12.2-16.2); LYMPH # 2.7 K/mm3 (0.7-4.5); LYMPH % 37.5 % (10-50.0)
== END ==
LOC: LAB 14:14
PROVIDERS: Surgery
DX: K82.9 Disease of gallbladder, unspecified (principal); Z01.812 Encounter for preprocedural laboratory examination

== ENCOUNTER 2017-09-24 06:21 | Day surgery (SDC) | payer OTHER, BC ==
[~2017-09-24] VITALS: Ht 170.2 cm; Wt 93.0 kg
--- NOTE | 2017-09-24 08:38 | Operative Note ---
Surgeon/Diagnoses Surgeon/Financial Service Representative(s) Date of procedure: 09/24/17 Surgeon: Dario Mcelroy Diagnoses Pre-op diagnosis: Chronic cholecystitis without gallstones Post-op diagnosis Same Procedure Procedure Procedure: Laparoscopic cholecystectomy Indications: CESILIA TURNER is a 21 year-old Female with a history of abdominal pain. She is a 21-year-old white female originally referred for gallbladder. She lives in [place] and is primarily under the care of Dr. Mason Amado. 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 She had presented to the emergency department on June 21 with complaints of RIGHT lower quadrant pain, cramping, and diarrhea. She had a gallbladder ultrasound performed at that time which revealed no evidence of any gallstones but revealed some sludge and debris. She had a diarrhea PCR panel which revealed Shigella. She was treated for this as an outpatient. She has had ongoing symptoms now of postprandial nausea, gassiness, and bloating. She's had some occasional right-sided abdominal pain. She's had a rare vomiting. This usually occurs about 30 minutes postprandially. Diarrhea resolved. I saw her back, she had symptoms consistent with gallbladder disease. I had her undergo HIDA scan. This revealed an ejection fraction of 56 percent. She has had symptoms of RIGHT upper quadrant pain radiating into her back occurring postprandially approximately 20-30 minutes. She had significant issue after she had eaten some lettuce and another time after she had eaten a hot dog. She underwent HIDA scan with fatty meal which revealed ejection fraction of 56 percent. Due to the equivocal HIDA scan I performed upper endoscopy. This was relatively unremarkable revealing only some mild gastritis. Patient has had postprandial nausea and RIGHT upper quadrant pain. She is unable to eat much. She has been on omeprazole since her upper endoscopy and this has not helped her symptoms. The options were discussed with the patient. Her symptoms seem to be classic biliary etiology. Surgery was offered. She strongly desired proceeding with cholecystectomy. Findings: She had a distended gallbladder without gallstones. Procedure Description: Consent was obtained and patient was taken to the operating room. She was positioned in a supine position. Gen. anesthesia was induced via endotracheal tube. Abdomen was prepped and draped in the standard surgical fashion. Subumbilical skin incision was made and while performing abdominal wall lift the Veress needle was inserted. CO2 pneumoperitoneum was achieved to 15 mmHg. 10/11 mm optical trocar was inserted at the umbilicus. External contents were visualized. She was positioned in reverse Trendelenburg and LEFT side down. A couple of 5 mm trochars were inserted in the RIGHT upper abdomen. 10 mm trocar was inserted in the epigastrium. Gallbladder was identified and grasped retracted anteriorly and superiorly over the dome of the liver. Infundibulum/ Maurisio's pouch was retracted anterolaterally. Blunt dissection was carried out at the neck of the gallbladder bluntly incising the visceral peritoneum. Blunt dissection was carried out identifying the cystic duct and cystic artery and the critical view of safety. Cystic duct was multiply clipped and then divided. Cystic artery was coagulated with Tunde ultrasonic harmonic indy and divided. Gallbladder was dissected free from the liver in a retrograde fashion using Tunde ultrasonic harmonic indy. All bladder was placed within an Endo Catch retrieval device and removed from the peritoneal cavity via the umbilical trocar site. This required minimal stretching of the fascial incision for delivery. Limited irrigation was performed of the gallbladder fossa. There was good hemostasis. Trochars were removed as CO2 pneumoperitoneum was evacuated. Fascia at the umbilicus was closed with 0 Vicryl [id number] suture. Local anesthetic was infiltrated. Skin incisions were closed with 4-0 Monocryl in a subcuticular fashion. Steri-Strips and clean dry sterile dressings were applied. EBL (ml): 30 Anesthesia: GETA Specimens: Gallbladder and contents Disposition Disposition: To PACU at 0838
--- NOTE | 2017-09-24 08:43 | Anesthesia Record ---
Anesthesia Record Part I Total IV fluids: 1600 EBL (ml): 30 Urine Output: 0 B/P: 114/68 % SaO2: 100 Pulse: 88 Resps: 16 Temp: 98.1 Patient is: Drowsy, Stable Stable to PACU at: 0830 at 0843
--- NOTE | 2017-09-24 08:43 | Anesthesia Record ---
Anesthesia Record Part II Discharge time: 909 Destination: Same day surgery PACU nurse assessment review? Yes Patient is: Stable Anesthesia complications? No at 0843
[2017-09-24 10:10] VITALS: BP 115/64
== END 2017-09-24 10:04 | disposition home or self-care (01) ==
LOC: SDC 06:21
PROVIDERS: Surgery
PROC: 0FT44ZZ Resection of Gallbladder, Percutaneous Endoscopic Approach (ICD-10-PCS; principal; 2017-09-24 07:30)
DX: K81.1 Chronic cholecystitis (principal)
CPT/HCPCS: J0131; J2405; J2710